=== PATIENT | male | born 1945 | race Caucasian/White ===

== ENCOUNTER 2017-05-16 12:36 | Outpatient (CLI) | payer MEDICARE | END 2017-05-16 12:37 | disposition home or self-care (01) | LOC: NS 12:36 | PROVIDERS: ATTEND Internal Medicine Gastroenterology | DX: Z71.3 Dietary counseling and surveillance (principal); R63.4 Abnormal weight loss; R10.9 Unspecified abdominal pain; G89.29 Other chronic pain; K30 Functional dyspepsia; Z68.1 Body mass index [BMI] 19.9 or less, adult | CPT/HCPCS: 97802 ==

== ENCOUNTER 2017-07-18 21:05 | Outpatient (CLI) | payer MEDICARE | END 2017-07-18 21:06 | disposition short-term general hospital (02) | LOC: EMS 21:05 | PROVIDERS: ATTEND Surgery | DX: R06.00 Dyspnea, unspecified (principal); R42 Dizziness and giddiness; R53.1 Weakness | CPT/HCPCS: A0425; A0427 ==

== ENCOUNTER 2018-02-03 08:56 | Outpatient (CLI) | payer MEDICARE ==
[2018-02-03 11:15] LABS: CALCIUM 8.6 mg/dL (8.5-10.3); CREATININE 0.5 mg/dL (0.6-1.2)
== END 2018-02-03 08:57 | disposition home or self-care (01) ==
LOC: LAB.F 08:56
PROVIDERS: ATTEND Internal Medicine Endocrinology, Diabetes & Metabolism
DX: T38.0X5D Adverse effect of glucocorticoids and synthetic analogues, subsequent encounter (principal); I95.1 Orthostatic hypotension; R63.4 Abnormal weight loss
CPT/HCPCS: 36415; 80048; 82533

== ENCOUNTER 2018-04-14 09:07 | Outpatient (CLI) | payer MEDICARE | END 2018-04-14 09:08 | disposition home or self-care (01) | LOC: LAB.F 09:07 | PROVIDERS: ATTEND Internal Medicine Endocrinology, Diabetes & Metabolism | DX: I95.1 Orthostatic hypotension (principal) | CPT/HCPCS: 36415; 82533 ==

== ENCOUNTER 2018-05-24 15:36 | Emergency (ER) | payer MEDICARE ==
[2018-05-24 15:45] VITALS: BP 152/69
--- NOTE | 2018-05-24 15:45 | ED Physician Documentation ---
PD HPI UPPER EXT INJURY - Stated complaint Stated Complaint: RT THUMB LAC - Chief complaint Chief Complaint: Ext Problem - History obtained from History obtained from: Patient - History of Present Illness Location: Right, Finger Type of injury: Blunt / blow (cutting wood on table saw and it kicked back, striking thumb and causing lac. Did not get cut with the blade.) Where injury occurred: Home Timing - onset: Today Timing - details: Abrupt onset Review of Systems Skin: reports: Laceration (s) Musculoskeletal: denies: Joint pain (he is able to move the IP joint in full ROM) Neurologic: denies: Focal weakness, Numbness PD PAST MEDICAL HISTORY - Past Medical History Cardiovascular: None Respiratory: COPD Endocrine/Autoimmune: None GI: None : Benign prostate hypertrophy HEENT: None Psych: None Musculoskeletal: None Derm: None - Past Surgical History Past Surgical History: Yes - Present Medications Home Medications: Ambulatory Orders Medication Instructions Recorded Confirmed Megestrol Acetate [Megace] 1 mg PO DAILY 07/09/13 07/09/13 Zinc Gluconate [Zinc] 37.5 mg DAILY 07/09/13 07/09/13 Finesteride 1 mg PO DAILY 05/02/16 Hydrocortisone 10 mg PO DAILY 05/02/16 Indocin 1 mg PO DAILY 05/02/16 Probana 1 mg INH DAILY 05/02/16 Tamulosin 1 mg PO DAILY 05/02/16 - Allergies Allergies/Adverse Reactions: Allergies Allergy/AdvReac Type Severity Reaction Status Date / Time Milk Containing Products AdvReac Unknown Nausea Verified 05/24/18 15:41 Egg White AdvReac Unknown Cramps Uncoded 05/24/18 15:41 - Social History Does the pt smoke?: No Smoking Status: Never smoker Does the pt drink ETOH?: Yes Does the pt have substance abuse?: No - Immunizations Immunizations are current?: Yes - POLST Patient has POLST: No PD ED PE NORMAL - Vitals Vital signs reviewed: Yes - General General: Alert and oriented X 3, No acute distress, Well developed/nourished - Derm Derm: Normal color, Warm and dry - Extremities Extremities: Other (right thumb with laceration on both sides of IP joint area without FB nor tendon injury. The joint itslef has good ROM. No noted deformity. No noted tendon injury. ) Results - Vitals Vitals: Oxygen O2 Source Room air Procedures - Laceration (location) right thumb Length in cm: 2.5 Wound type: Linear, Into subcut fat, Clean Neurovascular status: Sensory intact, Motor intact, Vascular intact Tendon involvement: No: Tendon Injury Anesthesia: Lidocaine 2% (digital block) Wound Preparation: Irrigated copiously NS, Wound explored, To the base, Wound edges modified. No: FB identified Skin layer closure: Nylon, Running, Size #-0 - enter number (4) Other: Patient tolerated well, No complications, Neurovascular intact, Dressing applied, Tetanus UTD Complexity: Simple PD MEDICAL DECISION MAKING - ED course Complexity details: reviewed results (shared decision to not do imaging as low clinical suspicion for bony injury. ), considered differential, d/w patient Departure - Departure Disposition: 01 Home, Self Care Clinical Impression: Laceration of thumb Qualifiers: Encounter type: initial encounter Damage to nail status: without damage Foreign body presence: without foreign body Laterality: right Qualified Code(s): S61.011A - Laceration without foreign body of right thumb without damage to nail, initial encounter Condition: Stable Record reviewed to determine appropriate education?: Yes Instructions: ED Laceration Hand Follow-Up: TO [facility] [Primary Care Provider] - Comments: It is okay to wash and shower. Clean off the wound twice a day with soap and water, or peroxide and water. Apply some antibiotic ointment to it to keep it moist. Also to watch for signs of infection such as purulence, redness or increasing pain. Return to your primary care or the ER at the specified time for suture removal. Suture removal 8-10 days. Light activity with the thumb initially and then progressed to normal after a few days with protecting the sutures. Tylenol if needed for pains. Discharge Date/Time: 05/24/18 17:18
== END 2018-05-24 17:18 | disposition home or self-care (01) ==
LOC: ED 15:36
DX: S61.011A Laceration without foreign body of right thumb without damage to nail, initial encounter (principal); W31.2XXA Contact with powered woodworking and forming machines, initial encounter; Y92.009 Unspecified place in unspecified non-institutional (private) residence as the place of occurrence of the external cause
CPT/HCPCS: 12001; 99282; 99283

== ENCOUNTER 2018-06-09 09:39 | Outpatient (CLI) | payer MEDICARE | END 2018-06-09 09:40 | disposition home or self-care (01) | LOC: LAB.F 09:39 | PROVIDERS: ATTEND Internal Medicine Endocrinology, Diabetes & Metabolism | DX: I95.1 Orthostatic hypotension (principal) | CPT/HCPCS: 36415; 82533 ==

== ENCOUNTER 2018-07-19 22:34 | Outpatient (CLI) | payer MEDICARE | END 2018-07-19 22:35 | disposition home or self-care (01) | LOC: EMS 22:34 | PROVIDERS: ATTEND Surgery | DX: R11.2 Nausea with vomiting, unspecified (principal); R19.7 Diarrhea, unspecified; I95.9 Hypotension, unspecified | CPT/HCPCS: A0425; A0427 ==

== ENCOUNTER 2018-08-16 07:36 | Outpatient (CLI) | payer MEDICARE ==
[2018-08-16 10:13] LABS: BASOPHILS # (AUTO) 0.1 10^3/uL (0.0-0.1); BASOPHILS % (AUTO) 1.2 %; EOSINOPHILS # (AUTO) 0.5 10^3/uL (0.0-0.7); EOSINOPHILS % (AUTO) 11.9 %; HGB - HEMOGLOBIN 12.8 g/dL (14.0-18.0); LYMPHOCYTES # (AUTO) 1.4 10^3/uL (1.5-3.5); LYMPHOCYTES % (AUTO) 30.3 %; MEAN CORPUSCULAR HEMOGLOBIN 32.5 pg (27.0-31.0); MEAN CORPUSCULAR VOLUME 95.6 fL (80.0-94.0); MEAN PLATELET VOLUME 8.2 fL (7.4-11.4); MONOCYTES # (AUTO) 0.6 10^3/uL (0.0-1.0); MONOCYTES % (AUTO) 14.2 %; NEUTROPHILS # (AUTO) 1.9 10^3/uL (1.5-6.6); NEUTROPHILS % (AUTO) 42.4 %; PLT - PLATELET COUNT 278 10^3/uL (130-450); RED BLOOD COUNT 3.93 10^6/uL (4.70-6.10); RED CELL DISTRIBUTION WIDTH 13.3 % (12.0-15.0); WHITE BLOOD COUNT 4.5 x10^3/uL (4.8-10.8)
[2018-08-16 10:30] LABS: ALBUMIN/GLOBULIN RATIO 1.5 (1.0-2.2); ALKALINE PHOSPHATASE 67 IU/L (42-121); ALT ALANINE AMINOTRANSFERASE 18 IU/L (10-60); AST ASPARTATE AMINOTRANSFERASE 28 IU/L (10-42); BILIRUBIN,TOTAL 0.5 mg/dL (0.2-1.0); BUN - BLOOD UREA NITROGEN 9 mg/dL (6-20); CALCIUM 8.7 mg/dL (8.5-10.3); CARBON DIOXIDE - CO2 27 mmol/L (21-32); CHLORIDE 97 mmol/L (101-111); CHOL/HDL RATIO 2.1 (<5.0); CHOLESTEROL 179 mg/dL; CREATININE 0.5 mg/dL (0.6-1.2); GFR - MDRD 164 (>89); GLUCOSE 98 mg/dL (70-100); HDL CHOLESTEROL 85 mg/dL; LDL CHOLESTEROL,CALCULATED 86 mg/dL; SODIUM 132 mmol/L (135-145); TOTAL PROTEIN 6.7 g/dL (6.7-8.2); VLDL CHOLESTEROL 8 mg/dL
== END 2018-08-16 07:37 | disposition home or self-care (01) ==
LOC: LAB.F 07:36
PROVIDERS: ATTEND Internal Medicine Endocrinology, Diabetes & Metabolism
DX: I95.1 Orthostatic hypotension (principal); Z76.89 Persons encountering health services in other specified circumstances
CPT/HCPCS: 36415; 80053; 80061; 82533; 83721; 84443; 85025

== ENCOUNTER 2019-03-14 10:25 | Outpatient (CLI) | payer MEDICARE ==
[2019-03-14 12:15] LABS: BASOPHILS # (AUTO) 0.1 10^3/uL (0.0-0.1); BASOPHILS % (AUTO) 1.4 %; EOSINOPHILS # (AUTO) 0.3 10^3/uL (0.0-0.7); EOSINOPHILS % (AUTO) 6.4 %; HGB - HEMOGLOBIN 12.3 g/dL (14.0-18.0); LYMPHOCYTES # (AUTO) 0.7 10^3/uL (1.5-3.5); MEAN CORPUSCULAR HEMOGLOBIN 31.5 pg (27.0-31.0); MEAN CORPUSCULAR HGB CONC 32.2 g/dL (32.0-36.0); MEAN CORPUSCULAR VOLUME 97.9 fL (80.0-94.0); MEAN PLATELET VOLUME 10.2 fL (7.4-11.4); MONOCYTES # (AUTO) 0.6 10^3/uL (0.0-1.0); MONOCYTES % (AUTO) 11.7 %; NEUTROPHILS # (AUTO) 3.2 10^3/uL (1.5-6.6); NEUTROPHILS % (AUTO) 64.9 %; PLT - PLATELET COUNT 312 10^3/uL (130-450); RED CELL DISTRIBUTION WIDTH 13.5 % (12.0-15.0); WHITE BLOOD COUNT 4.9 x10^3/uL (4.8-10.8)
[2019-03-14 12:53] LABS: ALBUMIN 4.4 g/dL (3.2-5.5); ALBUMIN/GLOBULIN RATIO 1.7 (1.0-2.2); BILIRUBIN,TOTAL 1.1 mg/dL (0.2-1.0); CALCIUM 9.1 mg/dL (8.5-10.3); CREATININE 0.4 mg/dL (0.6-1.2)
== END 2019-03-14 23:59 | disposition home or self-care (01) ==
LOC: LAB.WCP 10:25
PROVIDERS: ATTEND Internal Medicine Rheumatology
DX: M45.9 Ankylosing spondylitis of unspecified sites in spine (principal)
CPT/HCPCS: 36415; 80053; 85025; 85651